=== PATIENT | female | born 1960 | race Caucasian/White ===

== ENCOUNTER 2017-03-26 18:58 | Observation (INO) | payer MEDICARE, MEDICAID ==
[~2017-03-26] VITALS: Ht 170.2 cm; Wt 122.5 kg
[2017-03-26 18:58] VITALS: BP 138/65
--- OUTSIDE RECORDS SUMMARY | 2017-03-26 19:12 | External Medical Summary Rpt | CCD ---
Author Author , MARCUS Organization MARCUS Address Unknown Phone [email or web address] Purpose Continuity of Care Document - 07-06-2016 through 2016 Problems Code Diagnosis DOS Provider Status Z12.31 ENCOUNTER 01-24-2017 FOR SCREENING MAMMOGRAM FOR MALIGNANT NEOPLASM OF BREAST S61.215A LACERATION 12-26-2016 WITHOUT FOREIGN BODY OF LEFT RING FINGER WITHOUT DAMAGE TO NAIL, INITIAL ENCOUNTER S61.412A LACERATION 12-26-2016 WITHOUT FOREIGN BODY OF LEFT HAND, INITIAL ENCOUNTER W25.XXXA CONTACT 12-26-2016 WITH [place], INITIAL ENCOUNTER Y92.9 UNSPECIFIED 12-26-2016 PLACE OR NOT APPLICABLE Y93.9 ACTIVITY, 12-26-2016 UNSPECIFIED Z87.891 PERSONAL 12-26-2016 HISTORY OF NICOTINE DEPENDENCE Z88.8 ALLERGY 12-26-2016 STATUS TO OTHER DRUGS, MEDICAMENTS AND BIOLOGICAL SUBSTANCES STATUS D69.2 OTHER 10-21-2016 NONTHROMBOC YTOPENIC PURPURA E11.9 TYPE 2 10-21-2016 DIABETES MELLITUS WITHOUT COMPLICATIO NS E55.9 VITAMIN D 10-21-2016 DEFICIENCY, UNSPECIFIED E78.5 HYPERLIPIDE 10-21-2016 SOMMER, UNSPECIFIED G62.9 POLYNEUROPA 10-21-2016 THY, UNSPECIFIED I10 ESSENTIAL 10-21-2016 (PRIMARY) HYPERTENSIO N R53.83 OTHER 10-21-2016 FATIGUE R53.81 OTHER 10-18-2016 MALAISE M54.16 RADICULOPAT 07-06-2016 HY, LUMBAR REGION M54.5 LOW BACK 07-06-2016 PAIN
--- OUTSIDE RECORDS SUMMARY | 2017-03-26 19:12 | External Medical Summary Rpt | CCD ---
Author Author , MARCUS Organization MARCUS Address Unknown Phone [email or web address] Purpose Continuity of Care Document - 07-06-2016 [...]
--- OUTSIDE RECORDS SUMMARY | 2017-03-26 19:13 | External Medical Summary Rpt | CCD ---
Author Author , MARCUS HOBBS Address Unknown Phone [email or web address] Immunization Name Date Rout CVX Reac Dose Comm Prov Is Faci e tion ent ider Refu lity Give sed n Td 05-01 9 999 Hist H191 No H191 ([place] 2-20 oric lt), al Info adso rmat rbed ion - Sour ce Unsp ecif ied
--- OUTSIDE RECORDS SUMMARY | 2017-03-26 19:13 | External Medical Summary Rpt ---
Author Author FABY Hernandez, FABY Hernandez Organization [employer] Address Unknown Phone Unavailable
--- OUTSIDE RECORDS SUMMARY | 2017-03-26 19:13 | External Medical Summary Rpt | CCD ---
Author Author , MARCUS HOBBS Address Unknown Phone Immunization Name Date Rout CVX Reac Dose Comm Prov Is Faci e tion ent ider Refu lity Give sed n Td 05-01 9 999 Hist H191 No H191 ([place] 2-20 oric lt), al Info adso rmat rbed ion - Sour ce Unsp ecif ied
--- OUTSIDE RECORDS SUMMARY | 2017-03-26 19:13 | External Medical Summary Rpt | CCD ---
Author Author , FABY HOBBS Address Unknown Phone [email or web address] Team Providers Care Medical Art Therapist Name Role Phone [facility] Unavailable Unavailable [facility] Unavailable Unavailable [facility], Unavailable Unavailable [facility], Unavailable Unavailable [facility] Unavailable Unavailable [facility], [facility] Unavailable Unavailable [facility], [facility]available Unavailable [facility] [place] [facility] Unavailable Unavailable Purpose Continuity of Care Document - 05-20-2010 through 2016 Problems Code Diagnosis DOS Provider Status F3489 OTHER 02-10-2017 [facility] MOOD DISORDERS E1142 TYPE 2 01-05-2017 [place] DIABETES MELLITUS W/DIAB POLYNEUROPA THY I10 ESSENTIAL 01-05-2017 [place] PRIMARY HYPERTENSIO N N393 STRESS 01-05-2017 [place] INCONTINENC E FEMALE MALE [id number] LACERATION 01-05-2017 [place] W/O FOREIGN BODY LT HAND INITIAL ENC [id number] FALL ON 01-05-2017 [facility] STEPS INITIAL ENCOUNTER H81442 OTH PLACE 01-05-2017 [place] UNS NON INST RES PLACE OF OCCUR EXTRNL Y998 OTHER 01-05-2017 [place] EXTERNAL CAUSE STATUS Z6841 BODY MASS 01-05-2017 [place] INDEX BMI 40.0-44.9 ADULT [id number] LAC W/O FB 12-23-2016 [facility] LT RING N EMERGENCY FINGER W/O PHYS DAMAGE NAIL INIT [id number] CONTACT 12-23-2016 [facility] WITH SHARP N EMERGENCY GLASS PHYS INITIAL ENCOUNTER M31324 PERSONAL 12-23-2016 [facility] DEPENDENCE Z888 ALLERGY 12-23-2016 [facility] STATUS OT [facility]OSP[facility] BIOLOG SUBSTANC STS D692 OTHER 10-18-2016 [place] NONTHROMBOC YTOPENIC PURPURA E6601 MORBID 10-18-2016 [place] SEVERE OBESITY DUE TO EXCESS CALORIES I2510 ASHD KALISPEL 10-18-2016 [place] 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 M797 FIBROMYALGI 10-18-2016 [facility] A R5383 OTHER 10-18-2016 [facility] FATIGUE E782 MIXED 10-06-2016 [place] HYPERLIPIDE SOMMER G4733 OBSTRUCTIVE 10-06-2016 [place] SLEEP APNEA ADULT PEDIATRIC M545 LOW BACK 10-06-2016 [place] [place] 22364 OBESITY, 07-29-2010 [facility] 25396 MIGRAINE 07-29-2010 [facility] W/O INTRACT W/O STAT MIGRNOSUS V8801 ACQUIRED 07-29-2010 [facility] ABSENCE OF [facility] BOTH CERVIX AND UTERUS V1589 OTH SPEC 07-15-2010 [facility] PRESENTING [facility] OTH V7611 SCREENING 07-15-2010 [facility] [place] [facility] PATIENT V7612 OTHER 07-15-2010 [facility] MAMMOGRAM ASSOCIAT 81406 OSTEOARTHRO 06-29-2010 [facility] UNSPEC [facility] WHETHER GEN/LOC LOWER LEG 85366 EFFUSION OF 06-15-2010 [facility] L[facility]G [facility] JOINT ASSOCIAT 7295 PAIN IN 06-15-2010 [facility] TISSUES OF [facility] Medications Na ND Rx Da Fi Fi Am Da Di Ph RX Ph St me C No te ll ll ou ys ag ar # ys at rm s nt no ma ic us Or Da si cy ia de te s n re d TR 50 03 03 2 90 30 SO 36 AR Ac AZ 11 -2 -2 .0 PE 88 LL ti OD 10 2- 2- 00 RS 88 ER ve ON 43 20 20 E 30 11 11 FA CA 50 3 AR RO LY L MG J DR JOSE HOLLAND BL ET NA 68 03 03 3 60 30 SO 36 Ac MA 46 -1 -1 .0 PE 79 LL ti OX 20 1- 1- 00 RS 25 AF ve EN 19 20 20 LO 00 11 11 FA R 50 5 AR OS 0 LY IA MG S DR Olga Lidia HOLLAND BL ET HY 00 01 03 2 12 24 SO [address] 18 -2 -0 0. PE 36 LL ti OX 50 8- 8- 00 RS 93 ER ve YZ 61 20 20 0 IN 50 11 11 FA CA E 5 AR RO PA LY L M J 50 DR SKYLER MG CA P 59 02 03 3 8. 15 SO 36 Ac 31 -1 -0 50 PE 53 LL ti 00 5- 4- 0 RS 87 AF ve 57 20 20 LO 92 11 11 FA R 0 AR OS LY IA S [facility] TR 50 01 03 2 60 30 SO 36 AR Ac AZ 11 -2 -0 .0 PE 41 LL ti OD 10 4- 2- 00 RS 42 ER ve ON 43 20 20 E 30 11 11 FA CA 50 3 AR RO LY L MG J [facility] BL ET 64 02 03 4 60 30 SO 36 Ac 72 -0 -0 .0 PE 42 LL ti 00 3- 2- 00 RS 09 AF ve 12 20 20 LO 51 11 11 FA R 1 AR OS LY IA S [facility] FU 63 02 03 4 30 30 SO 36 Ac RO 30 -0 -0 .0 PE 42 LL ti SE 40 3- 2- 00 RS 08 AF ve AR 62 20 20 LO DE 51 11 11 FA R 0 AR OS 40 LY IA S MG [facility] BL ET LI 00 02 03 4 30 30 SO 36 Ac SI 18 -0 -0 .0 PE 42 LL ti NO 50 3- 2- 00 RS 07 AF ve MA 10 20 20 LO IL 21 11 11 FA R 0 AR OS 20 LY IA S MG [facility] TA BL ET 59 02 02 3 8. 15 SO 36 Ac 31 -1 -1 50 PE 53 LL ti 00 5- 5- 0 RS 87 AF ve 57 20 20 LO 92 11 11 FA R 0 AR OS LY IA S [facility] NA 68 02 02 2 30 30 SO 36 Ac MA 46 -1 -1 .0 PE 53 LL ti OX 20 5- 5- 00 RS 86 AF ve EN 19 20 20 LO 00 11 11 FA R 50 5 AR OS 0 LY IA MG S [facility] BL ET 64 02 02 4 60 30 SO 36 Ac 72 -0 -0 .0 PE 42 LL ti 00 3- 3- 00 RS 09 AF ve 12 20 20 LO 51 11 11 FA R 1 AR OS LY IA S [facility] FU 63 02 02 4 30 30 SO 36 Ac RO 30 -0 -0 .0 PE 42 LL ti SE 40 3- 3- 00 RS 08 AF ve AR 62 20 20 LO DE 51 11 11 FA R 0 AR OS 40 LY IA S MG [facility] TA BL ET LI 00 02 02 4 30 30 SO 36 Ac SI 18 -0 -0 .0 PE 42 LL ti NO 50 3- 3- 00 RS 07 AF ve MA 10 20 20 LO IL 21 11 11 FA R 0 AR OS 20 LY IA S MG DR M UG TA BL ET TR 50 01 02 2 60 30 SO 36 AR Ac AZ 11 -2 -0 .0 PE 41 LL ti OD 10 4 3- RS 42 ER ve ON 43 20 20 E 30 11 11 FA CA 50 3 AR RO LY L MG J DR TA UG BL ET HY 00 01 01 2 12 24 SO [address] 18 -2 -2 0. PE 36 LL ti OX 50 8 8 RS 93 ER ve YZ 61 20 20 0 IN 50 11 11 FA CA E 5 AR RO PA LY L M J 50 DR UG MG CA P TR 65 01 01 0 12 30 SO 36 Ac AM 16 -0 -2 0. PE 36 LL ti AD 20 RS 92 AF ve OL 62 20 20 0 LO 71 11 11 FA R HC 1 AR OS L LY IA [address] M MG UG TA BL ET MA 68 12 01 0 30 10 SO 36 TA Ac OM 38 -0 -2 .0 PE 30 MA ti ET 20 9- 0- 00 RS 64 RE ve CISNEROS 04 20 20 N ZI 11 10 11 FA JA NE 0 AR NE LY T 25 DR MG UG TA BL ET Encounters Encounter Start End Date Code Location Performer Type Date [facility] 7 [facility] - 1 1 [facility] - 1 1 [facility] - 1 1 [facility]
--- OUTSIDE RECORDS SUMMARY | 2017-03-26 19:13 | External Medical Summary Rpt | CCD ---
Author Author , FABY HOBBS Address Unknown Phone [email or web address] Resume Care Team Providers Care Supervisor Plating [employer] Point Assembly Name Role Phone [facility] Unavailable Unavailable [facility], [facility] Unavailable Unavailable [facility], Unavailable Unavailable [facility], Unavailable Unavailable [facility] Unavailable Unavailable [facility], [facility] Unavailable Unavailable [facility], Unavailable Unavailable [facility], [facility] Unavailable Unavailable Purpose Continuity of Care Document - 05-20-2010 through 2016 Problems Code Diagnosis DOS Provider Status F3489 OTHER 02-10-2017 [facility]ST[facility] MOOD DISORDERS E1142 TYPE 2 01-05-2017 [facility] DIABETES MELLITUS W/DIAB POLYNEUROPA THY I10 ESSENTIAL 01-05-2017 [facility] PRIMARY HYPERTENSIO N N393 STRESS 01-05-2017 [facility] INCONTINENC E FEMALE MALE [id number] LACERATION 01-05-2017 [facility] W/O FOREIGN BODY LT HAND INITIAL ENC Q994OQS FALL ON 01-05-2017 [facility] STEPS INITIAL ENCOUNTER A99889 OTH PLACE 01-05-2017 [facility] UNS NON INST RES PLACE OF OCCUR EXTRNL Y998 OTHER 01-05-2017 [facility] EXTERNAL CAUSE STATUS Z6841 BODY MASS 01-05-2017 [facility] INDEX BMI 40.0-44.9 ADULT [id number] LAC W/O FB 12-23-2016 [facility] LT RING N EMERGENCY FINGER W/O PHYS DAMAGE NAIL INIT [id number] CONTACT 12-23-2016 [facility] WITH SHARP N EMERGENCY GLASS PHYS INITIAL ENCOUNTER X39479 PERSONAL 12-23-2016 [facility] DEPENDENCE Z888 ALLERGY 12-23-2016 [facility] STATUS OT COMM[facility] RX [facility]S [facility]OSP[facility] BIOLOG SUBSTANC STS D692 OTHER 10-18-2016 [facility] NONTHROMBOC YTOPENIC PURPURA E6601 MORBID 10-18-2016 [facility] SEVERE OBESITY DUE TO EXCESS CALORIES I2510 ASHD SLEETMUTE 10-18-2016 [facility] 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 M797 FIBROMYALGI 10-18-2016 [facility] A R5383 OTHER 10-18-2016 [facility] FATIGUE E782 MIXED 10-06-2016 [facility] HYPERLIPIDE SOMMER G4733 OBSTRUCTIVE 10-06-2016 [facility] SLEEP [facility]A ADULT PEDIATRIC M545 LOW BACK 10-06-2016 [place] [place] 17205 OBESITY, 07-29-2010 [facility] 43840 MIGRAINE 07-29-2010 [facility] W/O INTRACT W/O STAT MIGRNOSUS V8801 ACQUIRED 07-29-2010 [facility] ABSENCE OF [facility]OSPITAL BOTH CERVIX AND UTERUS V1589 OTH SPEC 07-15-2010 [facility] PRESENTING [facility] OTH V7611 SCREENING 07-15-2010 [facility] [place] MAMMOGRAM [facility] PATIENT V7612 OTHER 07-15-2010 [facility] MAMMOGRAM ASSOCIAT 34432 OSTEOARTHRO 06-29-2010 [facility] UNSPEC [facility] WHETHER GEN/LOC LOWER LEG 15604 EFFUSION OF 06-15-2010 [facility]IOLOG[facility] JOINT ASSOCIAT 7295 PAIN IN 06-15-2010 [facility] [place] [facility] TIS[facility]ES [facility] Medications Na ND Rx Da Fi Fi Am Da Di Ph RX Ph St me C No te ll ll ou ys ag ar # ys at rm s nt no ma ic us Or Da si cy ia de te s n re d TR 50 03 03 2 90 30 SO 36 VA Ac AZ 11 -2 -2 .0 PE 88 LL ti OD 10 2- 2- 00 RS 88 ER ve ON 43 20 20 E 30 11 11 FA CA 50 3 VA RO LY L MG J DR JOSE HOLLAND BL ET NA 68 03 03 3 60 30 SO 36 Ac [place] 46 -1 -1 .0 PE 79 LL ti OX 20 1- 1- 00 RS 25 AF ve EN 19 20 20 LO 00 11 11 FA R 50 5 VA OS 0 LY IA MG S DR Olga Lidia HOLLAND BL ET HY 00 01 03 2 12 24 SO [address] 18 -2 -0 0. PE 36 LL ti OX 50 8- 8- 00 RS 93 ER ve YZ 61 20 20 0 IN 50 11 11 FA CA E 5 VA RO PA LY L M J 50 DR SKYLER MG CA P 59 02 03 3 8. 15 SO 36 Ac 31 -1 -0 50 PE 53 LL ti 00 5- 4- 0 RS 87 AF ve 57 20 20 LO 92 11 11 FA R 0 VA OS LY IA S [facility] TR 50 01 03 2 60 30 SO 36 VA Ac AZ 11 -2 -0 .0 PE 41 LL ti OD 10 4- 2- 00 RS 42 ER ve ON 43 20 20 E 30 11 11 FA CA 50 3 VA RO LY L MG J [facility] BL ET 64 02 03 4 60 30 SO 36 Ac 72 -0 -0 .0 PE 42 LL ti 00 3- 2- 00 RS 09 AF ve 12 20 20 LO 51 11 11 FA R 1 VA OS LY IA S [facility] FU 63 02 03 4 30 30 SO 36 Ac RO 30 -0 -0 .0 PE 42 LL ti SE 40 3- 2- 00 RS 08 AF ve VA 62 20 20 LO DE 51 11 11 FA R 0 VA OS 40 LY IA S MG [facility] BL ET LI 00 02 03 4 30 30 SO 36 Ac SI 18 -0 -0 .0 PE 42 LL ti NO 50 3- 2- 00 RS 07 AF ve [place] 10 20 20 LO [place] 21 11 11 FA R 0 VA OS 20 LY IA S MG [facility] TA BL ET 59 02 02 3 8. 15 SO 36 Ac 31 -1 -1 50 PE 53 LL ti 00 5- 5- 0 RS 87 AF ve 57 20 20 LO 92 11 11 FA R 0 VA OS LY IA S [facility] NA 68 02 02 2 30 30 SO 36 Ac [place] 46 -1 -1 .0 PE 53 LL ti OX 20 5- 5- 00 RS 86 AF ve EN 19 20 20 LO 00 11 11 FA R 50 5 VA OS 0 LY IA MG S [facility] BL ET 64 02 02 4 60 30 SO 36 Ac 72 -0 -0 .0 PE 42 LL ti 00 3- 3- 00 RS 09 AF ve 12 20 20 LO 51 11 11 FA R 1 VA OS LY IA S [facility] FU 63 02 02 4 30 30 SO 36 Ac RO 30 -0 -0 .0 PE 42 LL ti SE 40 3- 3- 00 RS 08 AF ve VA 62 20 20 LO DE 51 11 11 FA R 0 VA OS 40 LY IA S MG [facility] TA BL ET LI 00 02 02 4 30 30 SO 36 Ac SI 18 -0 -0 .0 PE 42 LL ti NO 50 3- 3- 00 RS 07 AF ve [place] 10 20 20 LO [place] 21 11 11 FA R 0 VA OS 20 LY IA S MG DR M UG TA BL ET TR 50 01 02 2 60 30 SO 36 VA Ac AZ 11 -2 -0 .0 PE 41 LL ti OD 10 4 3- RS 42 ER ve ON 43 20 20 E 30 11 11 FA CA 50 3 VA RO LY L MG J DR TA UG BL ET HY 00 01 01 2 12 24 SO [address] 18 -2 -2 0. PE 36 LL ti OX 50 8 8 RS 93 ER ve YZ 61 20 20 0 IN 50 11 11 FA CA E 5 VA RO PA LY L M J 50 DR UG MG CA P TR 65 01 01 0 12 30 SO 36 Ac AM 16 -0 -2 0. PE 36 LL ti AD 20 RS 92 AF ve OL 62 20 20 0 LO 71 11 11 FA R HC 1 VA OS L LY IA [address] M MG UG TA BL ET [place] 68 12 01 0 30 10 SO 36 TA Ac OM 38 -0 -2 .0 PE 30 MA ti ET 20 9- 0- 00 RS 64 RE ve CISNEROS 04 20 20 N ZI 11 10 11 FA JA NE 0 VA NE LY T 25 DR MG UG TA BL ET Encounters Encounter Start End Date Code Location Performer Type Date [facility] 7 [facility] - 1 1 [facility] - 1 1 [facility] - 1 1 [facility]
[2017-03-26] MEDS ORDERED: ISOSORBIDE MONO60 M1 PO (19:16)
[2017-03-26] MEDS ORDERED: GABAPENTIN800 MG PO (19:16)
[2017-03-26] MEDS ORDERED: MELOXICAM15 MG PO (19:17)
[2017-03-26] MEDS ORDERED: PRAVACHOL40 MG PO (19:18)
[2017-03-26] MEDS ORDERED: ESTRADIOL TD (19:18)
[2017-03-26] MEDS ORDERED: OMEPRAZOLE40 MG PO (19:20)
[2017-03-26] MEDS ORDERED: METFORMIN ER500 MG PO (19:21)
[2017-03-26] MEDS ORDERED: NORTRIPTYLINE H75 MG PO (19:21)
[2017-03-26] MEDS ORDERED: NOVOLOG MIX 70/10 ML SC ×2 (19:22)
[2017-03-26] MEDS ORDERED: METOPROLOL SUCC50 M4 PO (19:23)
[2017-03-26] MEDS ORDERED: VENLAFAXINE HYD75 M1 PO (19:23)
[2017-03-26] MEDS ORDERED: BUSPIRONE HCL15 MG PO (19:24)
[2017-03-26] MEDS ORDERED: VENLAFAXINE HY150 MG PO (19:24)
--- NOTE | 2017-03-26 19:24 | Emergency Room Report ---
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 EMS STATED PT WAS ALERT AND ORIENTED UPON THEIR ARRIVAL, DIAPHORETIC. PT REPORTS HEADACHE, DENIES CHEST PAIN, ALERT AND ORIENTED X3 UPON ARRIVAL TO ED Onset of symptoms date/time:03/26/17 or onset unknown for: Treatment Prior to Arrival: #18 G L AC, EKG, FSBS 179 CLERK RATING Provided by: FOOD SERVICE SPECIALIST Sepsis Risk Assessment: Temp: 98.3 B/P: 138/65 MAP: 89 Pulse: 86 Resp: 18 Recent fever? N Clinical Suspician of Infection? N Mental Status: 1 - Regular (Normal Baseline) Sepsis Risk:Low Sepsis Risk Have you (or family members/close friends) recently traveled outside the [place]? N If Yes, where/when: Have you had exposure to infectious disease within the past month? N TB? Other? Specify: Source patient, RN notes reviewed Exam Limitations no limitations Comment Pt at [facility] this evening and had a syncopal episode that lasted about 30 seconds, preceded by Dizziness. She was alert and OX3 when EMS arrived and was brought to the ED in NAD. She remembers breaking out with a sweat just prior to passing out. No chest pain at all Cardiac Chest Pain Chest pain indicative of cardiac No ALLERGIES Coded Allergies: butorphanol (From STADOL) (UNRESPONSIVE 03/26/17) sumatriptan (RESPIRATORY DISTRESS 03/26/17) Home Medications Reported Medications Gabapentin (Gabapentin 800MG) 800 MG PO BID #90 Isosorbide Mononitrate (Isosorbide Mononitrate ER) 60 MG PO DAILY #30 Meloxicam (Meloxicam 15MG) 15 MG PO DAILY #90 Estradiol 0.05 MG TD BIWEEKLY #8 Pravastatin Sodium (Pravachol) 40 MG PO QHS #30 Omeprazole (Omeprazole 40MG) 40 MG PO BID #180 NORTRIPTYLINE HCL (Nortriptyline Hydrochloride) 75 MG PO QHS #30 METFORMIN HCL (Metformin HCl ER) 1,000 MG PO BID #360 Ins Asp-Prt 70/Asp 30(Nvlogmx) (Novolog Mix 70-30 Vial) 36 UNITS SC QAM #60 Metoprolol Succinate (Metoprolol Succinate XL) 25 MG PO DAILY #90 VENLAFAXINE HCL (Venlafaxine HCl ER) 75 MG PO NOON #90 VENLAFAXINE HCL (Venlafaxine HCl ER) 150 MG PO QAM #90 Buspirone Hcl 30 MG PO BID #360 Furosemide 40 MG PO DAILY #90 Topiramate 50 MG PO QHS #90 Ins Asp-Prt 70/Asp 30(Nvlogmx) (Novolog Mix 70-30 Vial) 25 UNITS SC QHS Allopurinol (Zyloprim 300MG Tab Generic) 300 MG PO QHS History Medical History General Angina: Yes [place]: No Hypertension? Yes Hyperlipidemia? Yes CHF? No DVT? No COPD? No Asthma? Yes Anemia? No GERD? Yes Gastric ulcers? No GI Bleed? No Hernia? Yes Thyroid Problems? No Hypothyroidism? No CVA? No Seizures? No Diabetes? Yes Insulin Dependent: Yes Insulin Pump: No Home FSBS? Yes Renal Insuffiency? No End Stage Renal Disease? No UTI? Yes Stones? Yes GB Disease: Yes Nephritic Syndrome? No Asplenia? No Hepatitis? Yes Sickle Cell Disease? No Arthritis? Yes Migraines? Yes Cataracts? No Glaucoma? No MRSA? No HIV? No TB? No Anxiety? Yes Depression? Yes Cancer? No More? 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 Hx LMP N/A Family History Family Hx Diabetes Yes CAD Yes Hypertension Yes Hyperlipidemia Yes Cancer Yes TB Yes Social History Smoking Hx Smoker: Never Smoker Tobacco: No Alcohol Alcohol: No Review of Systems All Other Systems Reviewed and Negative Constitutional see HPI Respiratory see HPI Psychiatric/Neurological see HPI Physical Exam Vital Signs Vital Signs Date Time Temp Pulse Resp B/P Pulse O2 O2 Flow FiO2 Ox Delivery Rate 03/26 2002 98.3 60 18 98/63 94 03/26 1858 98.3 86 18 138/65 96 General Appearance normal appearance, WD/WN, no apparent distress, obese Respiratory Status No: respiratory distress. Lung Sounds bilateral: normal breath sounds. Cardiovascular normal exam, regular rate/rhythm Neurologic alert, wine steward II-XII nml as tested, normal exam, no motor/sensory deficits, oriented x 3 Medical Decision Making LABS/Meds/Orders Pt receiving controlled substance in ED? No Results/Orders Laboratory Tests 03/26/171909: Sodium 142, Potassium 2.8 *L, Chloride 102, Carbon Dioxide 30, BUN 18, Creatinine 1.1 H, Estimated Creat Clear 113, Estimated GFR (MDRD) 52 L, Glucose 89, Calcium 9.1, Total Bilirubin 0.4, AST 98 H, ALT 107 H, Alkaline Phosphatase 98, Creatine Kinase 223 H, CK-MB (CK-2) Rel Index 0.6, CK and CKMB Interp 1.3, Troponin I 0.03, Total Protein 8.2, Albumin 4.0, Globulin 4.2 H, Albumin/Globulin Ratio 1.0 L, WBC 8.1, RBC 4.05 L, Hgb 12.2, Hct 37.5, MCV 92.5, RDW 14.5, Plt Count 231, MPV 7.8, Gran % 49.0, Gran # 4.0, Lymphocytes % 41.9, Monocytes % 5.9, Eosinophils % 2.9, Basophils % 0.4, Lymphocytes # 3.4, Monocytes # 0.5, Eosinophils # 0.2, Basophils # 0.0, PUBS MCHC 32.5, MCH 30.0 Current Medication Orders Sig/Brett Start time Last Medication Dose Route Stop Time Status Admin Sodium Chloride 10 ML PRN PRN 03/26 1915 AC IV 03/27 1901 Orders Procedure Date/time Status DIET-NOTHING BY MOUTH 03/[address] HEAD REQ 03/26 1912 Active ELECTROCARDIOGRAM REQUEST 03/26 1901 Active CHEST-PORTABLE 03/26 1901 Active IV SALINE LOCK 03/26 1901 Active 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 1901 Active CBC WITH AUTO DIFF 03/26 1901 Complete CARDIAC ENZYMES 03/26 1901 Complete CHEM 12 PROFILE 03/26 1901 Complete 12 LEAD EKG-ANDREW (INITIAL) 03/26 UNK Active Departure Departure Time of Disposition 2028 Disposition DC Home or Self Care(routine) Clinical Impression Primary Impression: Right hip pain Condition STABLE Referrals CHRISTIANO NARAYANAN (Family) Patient Instructions DI for Hip Pain Additional Instructions Use meds as directed and followup with PCP to get an MRI if symptoms persist Discharge Counseling Counseled pt/family regarding diagnosis, test results, home care, follow up needs Prescriptions Current Visit Scripts DICLOFENAC SODIUM (Diclofenac 50MG) 50 MG PO BID #60 TAB Methocarbamol (Robaxin) 500 MG PO BID #60 TAB ED Critical Care Critical Care No If Critical Care minutes are documented, the time involved in the performance of seperately reportable procedures was not counted toward critical care time documented. I directly delivered medical care to this critically ill and/or injured patient. Timely evaluation and treatment was necessary to address the significant organ system(s) dysfunction present in this patient. at 2031
--- NOTE | 2017-03-26 19:24 | Emergency Room Report ---
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 EMS STATED PT WAS ALERT AND ORIENTED UPON THEIR ARRIVAL, DIAPHORETIC. 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 N Clinical Suspician of Infection? N Mental Status: 1 - Regular (Normal Baseline) Sepsis Risk:Low Sepsis Risk Have you (or family members/close friends) recently traveled outside the [place]? N If Yes, where/when: Have you had exposure to infectious disease within the past month? N TB? Other? Specify: Source patient, RN notes reviewed Exam Limitations no limitations Comment Pt at [employer] this evening and had a syncopal episode that lasted about 30 seconds, preceded by Dizziness. She was alert and OX3 when EMS arrived and was brought to the ED in NAD. She remembers breaking out with a sweat just prior to passing out. No chest pain at all Cardiac Chest Pain Chest pain indicative of cardiac No ALLERGIES Coded Allergies: butorphanol (From STADOL) (UNRESPONSIVE 03/26/17) sumatriptan (RESPIRATORY DISTRESS 03/26/17) Home Medications Reported Medications Gabapentin (Gabapentin 800MG) 800 MG PO BID #90 Isosorbide Mononitrate (Isosorbide Mononitrate ER) 60 MG PO DAILY #30 Meloxicam (Meloxicam 15MG) 15 MG PO DAILY #90 Estradiol 0.05 MG TD BIWEEKLY #8 Pravastatin Sodium (Pravachol) 40 MG PO QHS #30 Omeprazole (Omeprazole 40MG) 40 MG PO BID #180 NORTRIPTYLINE HCL (Nortriptyline Hydrochloride) 75 MG PO QHS #30 METFORMIN HCL (Metformin HCl ER) 1,000 MG PO BID #360 Ins Asp-Prt 70/Asp 30(Nvlogmx) (Novolog Mix 70-30 Vial) 36 UNITS SC QAM #60 Metoprolol Succinate (Metoprolol Succinate XL) 25 MG PO DAILY #90 VENLAFAXINE HCL (Venlafaxine HCl ER) 75 MG PO NOON #90 VENLAFAXINE HCL (Venlafaxine HCl ER) 150 MG PO QAM #90 Buspirone Hcl 30 MG PO BID #360 Furosemide 40 MG PO DAILY #90 Topiramate 50 MG PO QHS #90 Ins Asp-Prt 70/Asp 30(Nvlogmx) (Novolog Mix 70-30 Vial) 25 UNITS SC QHS Allopurinol (Zyloprim 300MG Tab Generic) 300 MG PO QHS History Medical History General Angina: Yes [place]: No Hypertension? Yes Hyperlipidemia? Yes CHF? No DVT? No COPD? No Asthma? Yes Anemia? No GERD? Yes Gastric ulcers? No GI Bleed? No Hernia? Yes Thyroid Problems? No Hypothyroidism? No CVA? No Seizures? No Diabetes? Yes Insulin Dependent: Yes Insulin Pump: No Home FSBS? Yes Renal Insuffiency? No End Stage Renal Disease? No UTI? Yes Stones? Yes GB Disease: Yes Nephritic Syndrome? No Asplenia? No Hepatitis? Yes Sickle Cell Disease? No Arthritis? Yes Migraines? Yes Cataracts? No Glaucoma? No MRSA? No HIV? No TB? No Anxiety? Yes Depression? Yes Cancer? No More? 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 Hx LMP N/A Family History Family Hx Diabetes Yes CAD Yes Hypertension Yes Hyperlipidemia Yes Cancer Yes TB Yes Social History Smoking Hx Smoker: Never Smoker Tobacco: No Alcohol Alcohol: No Review of Systems All Other Systems Reviewed and Negative Constitutional see HPI Respiratory see HPI Psychiatric/Neurological see HPI Physical Exam Vital Signs Vital Signs Date Time Temp Pulse Resp B/P Pulse O2 O2 Flow FiO2 Ox Delivery Rate 03/26 2002 98.3 60 18 98/63 94 03/26 1858 98.3 86 18 138/65 96 General Appearance normal appearance, WD/WN, no apparent distress, obese Respiratory Status No: respiratory distress. Lung Sounds bilateral: normal breath sounds. Cardiovascular normal exam, regular rate/rhythm Neurologic alert, collections professional II-XII nml as tested, normal exam, no motor/sensory deficits, oriented x 3 Medical Decision Making LABS/Meds/Orders Pt receiving controlled substance in ED? No Results/Orders Laboratory Tests 03/26/171909: Sodium 142, Potassium 2.8 *L, Chloride 102, Carbon Dioxide 30, BUN 18, Creatinine 1.1 H, Estimated Creat Clear 113, Estimated GFR (MDRD) 52 L, Glucose 89, Calcium 9.1, Total Bilirubin 0.4, AST 98 H, ALT 107 H, Alkaline Phosphatase 98, Creatine Kinase 223 H, CK-MB (CK-2) Rel Index 0.6, CK and CKMB Interp 1.3, Troponin I 0.03, Total Protein 8.2, Albumin 4.0, Globulin 4.2 H, Albumin/Globulin Ratio 1.0 L, WBC 8.1, RBC 4.05 L, Hgb 12.2, Hct 37.5, MCV 92.5, RDW 14.5, Plt Count 231, MPV 7.8, Gran % 49.0, Gran # 4.0, Lymphocytes % 41.9, Monocytes % 5.9, Eosinophils % 2.9, Basophils % 0.4, Lymphocytes # 3.4, Monocytes # 0.5, Eosinophils # 0.2, Basophils # 0.0, PUBS MCHC 32.5, MCH 30.0 Current Medication Orders Sig/Brett Start time Last Medication Dose Route Stop Time Status Admin Sodium Chloride 10 ML PRN PRN 03/26 1915 AC IV 03/27 1901 Orders Procedure Date/time Status DIET-NOTHING BY MOUTH 03/[address] HEAD REQ 03/26 1912 Active ELECTROCARDIOGRAM REQUEST 03/26 1901 Active CHEST-PORTABLE 03/26 1901 Active IV SALINE LOCK 03/26 1901 Active 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 Active CBC WITH AUTO DIFF 03/26 1901 Complete CARDIAC ENZYMES 03/26 1901 Complete CHEM 12 PROFILE 03/26 1901 Complete 12 LEAD EKG-ANDREW (INITIAL) 03/26 UNK Active Departure Departure Time of Disposition 2028 Disposition DC Home or Self Care(routine) Clinical Impression Primary Impression: Right hip pain Condition STABLE Referrals CHRISTIANO NARAYANAN (Family) Patient Instructions DI for Hip Pain Additional Instructions Use meds as directed and followup with PCP to get an MRI if symptoms persist Discharge Counseling Counseled pt/family regarding diagnosis, test results, home care, follow up needs Prescriptions Current Visit Scripts DICLOFENAC SODIUM (Diclofenac 50MG) 50 MG PO BID #60 TAB Methocarbamol (Robaxin) 500 MG PO BID #60 TAB ED Critical Care Critical Care No If Critical Care minutes are documented, the time involved in the performance of seperately reportable procedures was not counted toward critical care time documented. I directly delivered medical care to this critically ill and/or injured patient. Timely evaluation and treatment was necessary to address the significant organ system(s) dysfunction present in this patient. at 2031
[2017-03-26 19:25] LABS: HEMOGLOBIN 12.2 g/dL (12.2-16.2); LYMPH # 3.4 K/mm3 (0.7-4.5); LYMPH % 41.9 % (10-50.0)
[2017-03-26] MEDS ORDERED: FUROSEMIDE 40MG40 M1 PO (19:25)
[2017-03-26] MEDS ORDERED: TOPIRAMATE50 MG PO (19:25)
[2017-03-26] MEDS ORDERED: ZYLOPRIM 300MG300 MG PO (19:26)
--- NOTE | 2017-03-26 20:19 | RADIOLOGY REPORT PS360 ---
CT HEAD WITHOUT CONTRAST CT BONE WINDOWS included ORDERING PHYSICIAN : Rafaela Booker MD PATIENT AGE: 56 years GENDER: Female PROCEDURE: Routine axial images headwithout contrast. Brain & bone windows Headache HISTORY: SYNCOPAL EPISODE COMPARISON: Previous CT head 08/07/2008 FINDINGS: No acute intracranial findings. No hemorrhage.. No significant new findings compared to 2009. No mass effect or mass lesion. No subdural nor extra-axial collection. Ventricles & basal cisterns appear satisfactory. Vital & white matter patterns satisfactory. The posterior fossa appear satisfactory and unremarkable. Skull intact. Likely previous procedure rightglobe Mild mucosal thickening at posterior sphenoid sinuses bilaterally. Ethmoid air cells clear. Frontal and visualized portions of maxillary sinuses clear. It. Mastoid air cells, middle ear & IACs are unremarkable. IMPRESSION: No acute intracranial findings.. Stable CT brain versus 2009 mild mucosal thickening sphenoid sinus incidentally noted
[2017-03-26] MEDS ORDERED: ROBAXIN500 M1 PO (20:31)
[2017-03-26] MEDS ORDERED: DICLOFENAC 50MG50 MG PO (20:31)
--- OUTSIDE RECORDS SUMMARY | 2017-03-26 21:38 | External Medical Summary Rpt | CCD ---
Author Author [employer] Address Unknown Phone Unavailable Purpose Continuity of Care Document - through 2016
--- OUTSIDE RECORDS SUMMARY | 2017-03-26 21:38 | External Medical Summary Rpt ---
Author Author ALBERTOJAMAR Hernandez, [employer] Organization [employer] Address Unknown Phone Unavailable Results Glucose [Mass/volume] in Capillary blood by Glucometer Observa Value Referen Units Interpr Notes Date tion ce etation Range Glucose 70 - 110 mg/dl No Mar 26 [Mass/vol informati informati 2017 9:10 ume] in on in on in PM Capillary source source blood by data data Glucomete r Cardiac enzymes Observa Value Referen Units Interpr Notes Date tion ce etation Range Creatine 0 - 4.0 U/L Normal No Mar 26 kinase.MB informati 2016 7:10 /Creatine on in PM source kinase.to data kristina [Ratio] in Serum or Plasma Creatine 0.0 - 3.6 ng/mL Normal No Mar 26 kinase.MB informati 2017 7:10 on in PM [Mass/vol source ume] in data Serum or Plasma Creatine 26 - 192 U/L High No Mar 26 kinase informati 2017 7:10 [Enzymati on in PM c source activity/ data volume] in Serum or Plasma Troponin 0.00 - ng/mL Normal No Mar 26 I.cardiac 0.06 informati 2017 7:10 on in PM [Mass/vol source ume] in data Serum or Plasma Comprehensive metabolic 2000 panel in Serum or Plasma Observa Value Referen Units Interpr Notes Date ti ce etation Range Albumin/G 1.1 - 1.8 No Low No Mar 26 lobulin informati informati 2017 7:10 [Mass on in on in PM ratio] in source source Serum or data data Plasma Albumin 3.4 - 5.0 gm/dL Normal No Mar 26 [Mass/vol informati 2016 7:10 ume] in on in PM Serum or source Plasma data Alkaline 46 - 116 U/L Normal No Mar 26 phosphata informati 2017 7:10 se on in PM [Enzymati source c data activity/ volume] in Serum or Plasma Bilirubin 0.2 - 1.0 mg/dL Normal No Mar 26 .total informati 2017 7:10 [Mass/vol on in PM ume] in source Serum or data Plasma Urea 7 - 18 mg/dL Normal No Mar 26 nitrogen informati 2016 7:10 [Mass/vol on in PM ume] in source Serum or data Plasma Calcium 8.5 - mg/dL Normal No Mar 26 [Mass/vol 10.1 informati 2016 7:10 ume] in on in PM Serum or source Plasma data Chloride 98 - 107 mmoL/L Normal Mar 26 [Moles/vo informati 2016 7:10 lume] in on in PM Serum or source Plasma data Carbon 21.0 - mmoL/L Normal No Mar 26 dioxide, 32.0 informati 2016 7:10 total on in PM [Moles/vo source lume] in data Serum or Plasma Creatinin 0.55 - mg/dL High No Mar 26 e 1.02 informati 2016 7:10 [Mass/vol on in PM ume] in source Serum or data Plasma Creatinin 50 - 200 ML/MIN Normal No Mar 26 e renal informati 2016 7:10 clearance on in PM source predicted data by Cockcroft -Gault formula Estimated 59- ML/MIN Low REFERENCE Mar 26 RANGE: 2017 7:10 glomerula >60 PM r ML/MIN/1. filtratio 73 SQUARE n rate METERSIf (GF this patient is -A merican, then multiply theresult by 1.210. Globulin 1.3 - 3.2 gm/dL High No Mar 26 [Mass/vol informati 2016 7:10 ume] in on in PM Serum source data Glucose 74 - 106 mg/dL Normal Mar 26 [Mass/vol informati 2016 7:10 ume] in on in PM Serum or source Plasma data Potassium 3.5 - 5.1 mmoL/L Low alert Mar 26 2016 7:10 [Moles/vo CRITICAL PM lume] in RESULTS Serum or Plasma RESU LTS CALLED TO: Silverio HUITRON RN 03/26/17 1950 Karo Irizarry Sodium 136 - 145 mmoL/L Normal Mar 26 [Moles/vo informati 2016 7:10 lume] in on in PM Serum or source Plasma data Aspartate 15 - 37 U/L High Mar 26 informati 2016 7:10 aminotran on in PM sferase source [Enzymati data c activity/ volume] in Serum or Plasma Alanine 12 - 78 U/L High No Mar 26 aminotran informati 2016 7:10 sferase on in PM [Enzymati source c data activity/ volume] in Serum or Plasma Protein 6.4 - 8.2 gm/dL Normal No Mar 26 [Mass/vol informati 2016 7:10 ume] in on in PM Serum or source Plasma data CBC W Auto Differential panel in Blood Observa Value Referen Units Interpr Notes Date tion ce etation Range Basophils 0 - 0.2 K/MM3 Normal No Mar 26 informati 2016 7:10 [#/volume on in PM ] in source Blood by data Automated count Basophils 0.1 - 2.0 % Normal No Mar 26 / informati 2016 7:10 leukocyte on in PM s in source Blood by data Automated count Eosinophi 0.0 - 0.4 K/mm3 Normal No Mar 26 ls informati 2016 7:10 [#/volume on in PM ] in source Blood by data Automated count Eosinophi 0.1 - % Normal No Mar 26 ls/100 12.0 informati 2016 7:10 leukocyte on in PM s in source Blood by data Automated count Granulocy 1.8 - 7.8 K/mm3 Normal No Mar 26 joel informati 2016 7:10 [#/volume on in PM ] in source Blood by data Automated count Granulocy 37.0 - % Normal No Mar 26 joel/100 80.0 informati 2016 7:10 leukocyte on in PM s in source Blood by data Automated count Hematocri 37.0 - % Normal Mar 26 t [Volume 47.0 informati 2016 7:10 on in PM Fraction] source of Blood data Hemoglobi 12.2 - g/dL Normal Mar 26 n 16.2 informati 2016 7:10 [Mass/vol on in PM ume] in source Blood data Lymphocyt 0.7 - 4.5 K/mm3 Normal No Mar 26 es informati 2016 7:10 [#/volume on in PM ] in source Unspecifi data ed specimen by Automated count Lymphocyt 10 - 50.0 % Normal No Mar 26 es informati 2016 7:10 [#/volume on in PM ] in source Unspecifi data ed specimen by Automated count Erythrocy 27 - 31.2 pg Normal No Mar 26 te mean informati 2016 7:10 corpuscul on in PM ar source hemoglobi data n [Entitic mass] Erythrocy 31.8 - g/dl Normal No Mar 26 te mean 35.4 informati 2016 7:10 corpuscul on in PM ar source hemoglobi data n concentra tion [Mass/vol ume] by Automated count Erythrocy 82.2 - fl Normal No Mar 26 te mean 97.8 informati 2016 7:10 corpuscul on in PM ar volume source [Entitic data volume] by Automated count Monocytes 0.1 - 1.0 K/mm3 Normal No Mar 26 informati 2016 7:10 [#/volume on in PM ] in source Blood by data Automated count Monocytes 1.7 - 9.3 % Normal No Mar 26 /100 informati 2017 7:10 leukocyte on in PM s in source Blood by data Automated count Platelet 7.4 - fl Normal No Mar 26 mean 10.4 informati 2017 7:10 volume on in PM [Entitic source volume] data in Blood by Automated count Platelets 142 - 424 K/mm3 No Mar 26 informati informati 2017 7:10 [#/volume on in on in PM ] in source source Blood data data Erythrocy 4.2 - 5.4 M/mm3 Low No Mar 26 joel informati 2016 7:10 [#/volume on in PM ] in source Amniotic data fluid Erythrocy 11.5 - % Normal No Mar 26 te 17.5 informati 2016 7:10 distribut on in PM ion width source [Entitic data volume] by Automated count Leukocyte 4.8 - K/MM3 Normal No Mar 26 s 10.8 informati 2016 7:10 [#/volume on in PM ] in source Blood data
[2017-03-26 21:52] LABS: FREE THYROXIN INDEX 8.1 ug/dl (5.93-13.13)
--- NOTE | 2017-03-26 23:10 | RADIOLOGY REPORT PS360 ---
CHEST-PORTABLE Ordering Physician: Jose Belcher MD Patient Age: 56 years: Female HISTORY: CHEST PAIN chest pain. Syncope. Smoker. TECHNIQUE: AP portable upright chest COMPARISON :Previous chest film 03/26/2007 portable FINDINGS No significant new findings. No interval change. No focal pneumonia. No pneumothorax. Heart rebecca and mediastinal structures appear stable and satisfactory. chest painting leader connector points are seen over left and right chest IMPRESSION: Lungs clear. Stable nothing definitely acute
--- NOTE | 2017-03-26 23:10 | RADIOLOGY REPORT PS360 ---
CHEST-PORTABLE Ordering Physician: Jose Belcher MD Patient Age: 56 years: Female HISTORY: CHEST PAIN chest pain. Syncope. Smoker. TECHNIQUE: AP portable upright chest COMPARISON :Previous chest film 03/26/2007 portable FINDINGS No significant new findings. No interval change. No focal pneumonia. No pneumothorax. Heart rebecca and mediastinal structures appear stable and satisfactory. patient monitor connector points are seen over left and right chest IMPRESSION: Lungs clear. Stable nothing definitely acute
[2017-03-26 23:25] VITALS: BP 105/65
[2017-03-26 23:34] VITALS: BP 105/65
[2017-03-27] VITALS (18 sets, daily range): BP systolic 106–145; BP diastolic 50–92
[2017-03-27] MEDS ORDERED: VITAMIN D31000 IU PO (01:13)
[2017-03-27] MEDS ORDERED: ASPIRIN 81MG TA81 MG PO (01:14)
[2017-03-27 04:25] LABS: HEMOGLOBIN 11.7 g/dL (12.2-16.2); LYMPH # 3.6 K/mm3 (0.7-4.5); LYMPH % 51.5 % (10-50.0)
[2017-03-27 04:43] LABS: NEUTROPHILS 32 % (42-76)
--- NOTE | 2017-03-27 08:54 | PHARMACY CLINIC NOTE ---
Patient Demographics Patient Demographics Admission date: 03/26/17 Date: 03/27/17 Time: 0853 Allergies Coded Allergies: butorphanol (From STADOL) (UNRESPONSIVE 03/26/17) sumatriptan (RESPIRATORY DISTRESS 03/26/17) HEIGHT- FT: 5 IN: 7.00 K.528 VTE General Information Labs: Laboratory Tests 03/27 03/26 0405 1910 Hematology Hgb (12.2 - 16.2 g/dL) 11.7 L 12.2 Hct (37.0 - 47.0 %) 36.2 L 37.5 Plt Count (142 - 424 K/mm3) 198 231 Disclaimer The following section includes nursing documentation that has been pulled in for pharmacy review. Patient's VTE score: 2 Patient's VTE Risk: VERY LOW RISK Clinical trial participant? No VTE prophylaxis NQF [id number] VTE prophylaxis ordered? Yes Type of prophylaxis/treatment: DOROTHY at 0853
--- NOTE | 2017-03-27 08:55 | CONSULT NOTE ---
See Addendum Standard Demographics Patient Demo Date of Consultation: 03/27/17 Referring Provider: Erickson Julio MD Reason for Consultation: Syncope, CAD, HTN PRIMARY DIAGNOSIS: SYNCOPE Problem list Problem list: 1. Diabetes mellitus, treated since about 2009 2. Hypertension 3. Hyperlipidemia 4. CAD by cath 2011, small vessel per patient with recommendation for medical therapy. History of present illness: History of present illness: 56-year-old white female with diabetes, known coronary artery disease, hypertension and hyperlipidemia presented to the emergency department by EMS after syncopal episode at [facility]. Patient denies any chest discomfort earlier in the day. After returning to [facility] in the evening and sitting down to enjoy a butterscotch she felt some discomfort in the upper chest and reportedly passed out. EMS was activated and patient was transported to the emergency department. She reportedly did receive cardiopulmonary resuscitation. The patient awoke when the ambulance was arriving. To the emergency department H and P for further details. Patient relates some recent exertional chest discomfort which improved with an increase in her Toprol therapy. Patient reports last cardiac catheterization in 2011 revealing small vessel disease for which no intervention recommended other than medical therapy. In the emergency department, patient was noted to have orthostatic blood pressure changes hypokalemia. IV fluids and potassium supplementation were started. Initial troponin was normal but the second and third were noted to be elevated. Patient was admitted for further evaluation. She denies any further chest pain except that associated with palpation of the chest wall or deep breathing secondary to the chest compressions. Electrocardiogram is sinus rhythm with lateral nonspecific ST-T changes. Cardiology consulted for evaluation and recommendations. Past Medical History: General: Hypertension Yes CVA No Seizures No TB No COPD No Asthma Yes Diabetes Yes Insulin Dependent Yes Insulin Pump No Angina Yes CT No Hyperlipidemia Yes Cancer No Ulcers No GB Disease Yes Other HEP C Additional hx HEPATITIS C Past Surgical HX: Previous Surgery?Y HYSTERECTOMY BLADDER TACKING RECTUM REPAIR [place] Hernia OVARIAN CYST REMOVED BREAST LUMP REMOVED D & C LAPAROSCOPIC X 3 Allergies Coded Allergies: butorphanol (From STADOL) (UNRESPONSIVE 03/26/17) sumatriptan (RESPIRATORY DISTRESS 03/26/17) Home medications: Reported Medications Gabapentin (Gabapentin 800MG) 800 MG PO BID #90 Isosorbide Mononitrate (Isosorbide Mononitrate ER) 60 MG PO DAILY #30 Meloxicam (Meloxicam 15MG) 15 MG PO DAILY #90 Estradiol 0.05 MG TD BIWEEKLY #8 Pravastatin Sodium (Pravachol) 40 MG PO QHS #30 Omeprazole (Omeprazole 40MG) 40 MG PO BID #180 METFORMIN HCL (Metformin HCl ER) 1,000 MG PO BID #360 Ins Asp-Prt 70/Asp 30(Nvlogmx) (Novolog Mix 70-30 Vial) 36 UNITS SC QAM #60 VENLAFAXINE HCL (Venlafaxine HCl ER) 75 MG PO NOON #90 VENLAFAXINE HCL (Venlafaxine HCl ER) 150 MG PO QAM #90 Buspirone Hcl 30 MG PO BID #360 Furosemide 40 MG PO DAILY #90 Topiramate 50 MG PO QHS #90 Metoprolol Succinate (Metoprolol Succinate XL) 25 MG PO DAILY #90 TAB NORTRIPTYLINE HCL (Nortriptyline Hydrochloride) 50 MG PO QHS #30 CAPSULE Ins Asp-Prt 70/Asp 30(Nvlogmx) (Novolog Mix 70-30 Vial) 27 UNITS SC QHS CHOLECALCIFEROL (VITAMIN D3) (Vitamin D) 2,000 IUNITS PO DAILY ASPIRIN (Aspirin) 81 MG PO DAILY Allopurinol (Zyloprim 300MG Tab Generic) 300 MG PO QHS Current Medications: Current Medications Allopurinol 300 MG QHS PO Pravastatin Sodium 40 MG QHS PO (CKD) Isosorbide Mononitrate 60 MG DAILY PO Metoprolol Succinate 25 MG DAILY PO Venlafaxine HCl 75 MG DAILY PO Fentanyl Citrate 25 MCG Q3MINP PRN IV (UNV) Fentanyl Citrate 50 MCG Q3MINP PRN IV (UNV) Flumazenil 0.2 MG PRN PRN IV (UNV) Heparin Sodium (Beef Lung) 5,000 UNITS PRN PRN IV (UNV) Heparin Sodium/Sodium Chloride 3,000 UNITS PRN PRN IV (UNV) Lidocaine HCl 20 ML ONCE ONE IJ (UNV) Midazolam HCl 1 MG Q3MINP PRN IV (UNV) Midazolam HCl 1 MG Q3MINP PRN IV (UNV) Naloxone HCl 0.4 MG L2SAFLLA PRN IV (UNV) Nitroglycerin 800 MCG PRN PRN IV (UNV) Verapamil HCl 5 MG PRN PRN IV (UNV) Sodium Chloride 10 ML PRN PRN IV Diagnostic Test (Pha) 1 EACH W/MEALS&HS FS Insulin Human [rDNA origin] SEE ADMIN CRITERIA FOR LOW INTENSITY SS W/MEALS&HS SC Sodium Chloride 1,000 ML .[id number] IV Clopidogrel Bisulfate 0 .STK-MED ONE PO (DC) Enoxaparin Sodium 0 .STK-MED ONE SC (DC) Clopidogrel Bisulfate 300 MG ONCE ONE PO (DC) Enoxaparin Sodium 120 MG ONCE ONE SC (DC) Potassium Chloride 0 .STK-MED ONE PO (DC) Sodium Chloride 1,000 ML .STK-MED ONE IV (DC) Potassium Chloride 60 MEQ ONCE ONE PO (DC) Sodium Chloride 1,000 ML .Q1H1M IV (DC) Sodium Chloride 10 ML PRN PRN IV Sodium Chloride 10 ML PRN PRN IV Immunization HX DT/Tetanus 5-10 Years Flu 2017 Pneumonia RECEIVED IN PAST TB Test in last year No Family history Family HX Family Hx Insignificant No Diabetes Yes CAD Yes Hypertension Yes Hyperlipidemia Yes Cancer Yes TB Yes Social Hx: Smoking HX Tobacco No Type N/A Alcohol Alcohol: No Hx of Drug Use Drug Use? No Review of systems: Constitutional No: no symptoms reported. Respiratory SOB with excertion. Cardiovascular chest pain Gastrointestinal/Abdominal No no symptoms reported Genitourinary No: no symptoms reported. Musculoskeletal No: no symptoms reported. Neurological Yes: see HPI. Exam: Admission Vital Signs: 1ST Vital Signs Result Date Time Pulse Ox 96 03/268 B/P 138/65 03/26 1858 Temp 98.3 03/26 1858 Pulse 86 03/26 185 Resp 18 03/26 1858 O2 Delivery ROOM AIR 03/26 2325 Last Vital Signs: Vital Signs Result Date Time Pulse Ox 98 03/27 816 B/P 109/67 03/27 816 Temp 98.0 03/27 816 Pulse 66 03/27 08 Resp 20 03/27 08 O2 Delivery ROOM AIR 03/27 0755 Exam General appearance: alert, awake, no acute distress Neck: no carotid bruit, no JVD Cardiovascular: regular rate & rhythm Respiratory: diminished breath sounds ABD: soft, no tenderness Extremities: moves all, no peripheral edema Neuro: alert, intact, oriented Laboratory data: Laboratory Tests 03/27/17 0405: Sodium 144, Potassium 3.3 L, Chloride 107, Carbon Dioxide 29, BUN 15, Creatinine 0.9, Estimated Creat Clear 138, Estimated GFR (MDRD) 65, Glucose 131 H, Calcium 8.2 L, Total Bilirubin 0.3, AST 77 H, ALT 90 H, Alkaline Phosphatase 85, Creatine Kinase 227 H, CK-MB (CK-2) Rel Index 0.8, CK and CKMB Interp 1.9, Troponin I 0.20 H, Total Protein 7.1, Albumin 3.4, Globulin 3.7 H, Albumin/Globulin Ratio 0.9 L, WBC 6.9, RBC 3.87 L, Hgb 11.7 L, Hct 36.2 L, MCV 93.6, RDW 14.5, Plt Count 198, MPV 7.2 L, Gran % 37.0, Gran # 2.6, Total Counted 100, Lymphocytes % 51.5 H, Monocytes % 7.4, Eosinophils % 3.5, Basophils % 0.5, Neutrophils 32 L, Band Neutrophils 1, Lymphocytes (Manual) 62 H, Lymphocytes # 3.6, Monocytes (Manual) 2, Monocytes # 0.5, Eosinophils # 0.3, Eosinophils # (Manual) 3, Basophils # 0.0, RBC/WBC/PLT Morphology NORMAL, Platelet Estimate NORMAL, PUBS MCHC 32.2, MCH 30.2 03/26/172150: Creatine Kinase 196 H, CK-MB (CK-2) Rel Index 0.6, CK and CKMB Interp 1.1, Troponin I 0.11 H 03/26/172109: POC Glucose 73 03/26/171909: TSH 3.38, Free T4 Index 8.1, Thyroxine (T4) 10.8, T3 Uptake 30 L 03/26/171909: Sodium 142, Potassium 2.8 *L, Chloride 102, Carbon Dioxide 30, BUN 18, Creatinine 1.1 H, Estimated Creat Clear 113, Estimated GFR (MDRD) 52 L, Glucose 89, Calcium 9.1, Total Bilirubin 0.4, AST 98 H, ALT 107 H, Alkaline Phosphatase 98, Creatine Kinase 223 H, CK-MB (CK-2) Rel Index 0.6, CK and CKMB Interp 1.3, Troponin I 0.03, Total Protein 8.2, Albumin 4.0, Globulin 4.2 H, Albumin/Globulin Ratio 1.0 L, D-Dimer 386, WBC 8.1, RBC 4.05 L, Hgb 12.2, Hct 37.5, MCV 92.5, RDW 14.5, Plt Count 231, MPV 7.8, Gran % 49.0, Gran # 4.0, Lymphocytes % 41.9, Monocytes % 5.9, Eosinophils % 2.9, Basophils % 0.4, Lymphocytes # 3.4, Monocytes # 0.5, Eosinophils # 0.2, Basophils # 0.0, PUBS MCHC 32.5, MCH 30.0 Plan Assessment: 1. Non-STEMI, ASA and plavix started. 2. Syncope, etiology unknown but concerned for ischemic origin. 3. Known coronary disease by cath 2011. 4. Diabetes mellitus 5. Orthostatic hypertension 6. Hypokalemia JESSA N-STEMI SCORE JESSA N-STEMI SCORE Response Value Age of patient Less than 65 yrs 0 Number of risk factors for CAD Presence of 3 or more 1 Prior coronary artery stenosis (seen in angiography) 50% or more 1 ST-Segment deviation on ECG (>1 min) Absent 0 Prior aspirin intake ASA intake in last 7 days 1 Severe anginal chest pain 2 or more episodes/24hr 1 Elevated cardiac markers(CK-MB or troponin) Present 1 Total 5 Plan: Discussed with Dr. Dupree. We'll proceed with LEFT heart catheterization today. Patient agrees to proceed. at 0912
--- NOTE | 2017-03-27 09:08 | HISTORY AND PHYSICAL REPORT ---
See Addendum History and Physical ([facility]CA) Date of admission: 03/26/17 Chief complaint: chest pain with syncope History: History of Present Illness: Ms Cardoza is a 56 year old female with a history of CAD, asthma, gout, diabetes , and who when at [facility] will sitting began having some LACP. She then passed out and remembers the ambulance people working with her while lying on the bench in the [employer]. She states someone told her that CPR was performed on her. She is sore on the left chest from this. She does not remember being SOB or having palpitations. She states she has been having chest pain for about the past 3 months. She saw her PCP, Dr. Schneider, and he increased her Imdur. She was suppose to see her mdm developer, Dr. Braxton, but has yet to make an appt. She thinks her last cardiac cath was in 2012 at which time her CAD was discovered. She had a stress test about 1 year ago which she describes as not being good. This AM she has left anterior and lateral chest soreness. Pain is greater with movement; She denies any breathing difficulty. Past Medical History: Medical History: CAD? Yes Angina: Yes CA: No Hypertension? Yes Hyperlipidemia? Yes CHF? No DVT? No COPD? No Asthma? Yes Anemia? No GERD? Yes Gastric ulcers? No GI Bleed? No Hernia? Yes Thyroid Problems? No Hypothyroidism? No CVA? No Seizures? No Diabetes? Yes Insulin Dependent: Yes Insulin Pump: No Home FSBS? Yes Renal Insuffiency? No UTI? Yes Stones? Yes GB Disease: Yes Nephritic Syndrome? No Asplenia? No Hepatitis? Yes Sickle Cell Disease? No Arthritis? Yes Migraines? Yes Cataracts? No Glaucoma? No HIV? No TB? No Anxiety? Yes Depression? Yes Cancer? No More? Yes Additional hx: HEPATITIS C Surgical history: Previous Surgery?Y HYSTERECTOMY BLADDER TACKING RECTUM REPAIR Gallbladd Hernia OVARIAN CYST REMOVED BREAST LUMP REMOVED D & C LAPAROSCOPIC X 3 Medications: Reported Medications Gabapentin (Gabapentin 800MG) 800 MG PO BID #90 Isosorbide Mononitrate (Isosorbide Mononitrate ER) 60 MG PO DAILY #30 Meloxicam (Meloxicam 15MG) 15 MG PO DAILY #90 Estradiol 0.05 MG TD BIWEEKLY #8 Pravastatin Sodium (Pravachol) 40 MG PO QHS #30 Omeprazole (Omeprazole 40MG) 40 MG PO BID #180 METFORMIN HCL (Metformin HCl ER) 1,000 MG PO BID #360 Ins Asp-Prt 70/Asp 30(Nvlogmx) (Novolog Mix 70-30 Vial) 36 UNITS SC QAM #60 VENLAFAXINE HCL (Venlafaxine HCl ER) 75 MG PO NOON #90 VENLAFAXINE HCL (Venlafaxine HCl ER) 150 MG PO QAM #90 Buspirone Hcl 30 MG PO BID #360 Furosemide 40 MG PO DAILY #90 Topiramate 50 MG PO QHS #90 Metoprolol Succinate (Metoprolol Succinate XL) 25 MG PO DAILY #90 TAB NORTRIPTYLINE HCL (Nortriptyline Hydrochloride) 50 MG PO QHS #30 CAPSULE Ins Asp-Prt 70/Asp 30(Nvlogmx) (Novolog Mix 70-30 Vial) 27 UNITS SC QHS CHOLECALCIFEROL (VITAMIN D3) (Vitamin D) 2,000 IUNITS PO DAILY ASPIRIN (Aspirin) 81 MG PO DAILY Allopurinol (Zyloprim 300MG Tab Generic) 300 MG PO QHS Allergies: Coded Allergies: butorphanol (From STADOL) (UNRESPONSIVE 03/26/17) sumatriptan (RESPIRATORY DISTRESS 03/26/17) Family History: Family history: Postive for: CAD, DM. Negative for: cancer. Social History: Smoking Hx Tobacco: No Smoker: Never Smoker Type: N/A Packs/day: N/A Are you exposed to second hand No Alcohol: Alcohol: No Hx of Drug Use: Drug Use? No Patien't marital status is: Review of Systems: ENT No: ear ache, mouth pain, sinus problems, sore throat. Cardiovascular Positive for: chest pain, edema. No: palpitations. Respiratory Positive for: shortness of air. No: hemoptysis, non-productive, pneumonia, productive cough (sputum). GI Positive for: GERD. No: abdominal pain, constipation, diarrhea, hematemeis, hematochezia, melena, nausea, vomitting. (female) No: frequency, hematuria. Neurological Positive for: syncope. No: confusion, dizziness, headache, seizure. Musculoskeletal Positive for: thoracic pain. Physical Exam: Vital signs: Vital Signs Date Time Temp Pulse Resp B/P Pulse O2 O2 Flow FiO2 Ox Delivery Rate 03/27 0816 98.0 66 20 109/67 98 03/27 0755 98.0 66 20 109/67 98 ROOM AIR 03/27 0336 97.5 66 17 121/83 97 ROOM AIR 03/26 2334 97.9 71 18 105/65 98 ROOM AIR 03/26 2325 71 03/26 2325 97.9 71 18 105/65 03/26 232 98 ROOM AIR 03/26 2303 73 18 125/87 96 03/26 2242 73 18 125/87 96 03/26 2128 80 18 93/69 94 03/26 2117 90 18 93/69 94 03/26 2116 89 82/52 03/26 2115 89 103/59 03/26 2047 98.3 95 18 88/53 94 03/26 2046 95 88/53 03/26 2046 90 95/59 03/26 2044 101 103/58 03/26 2002 98.3 60 18 98/63 94 03/26 185 98.3 86 18 138/65 96 1ST Vital Signs Result Date Time Pulse Ox 96 03/26 185 B/P 138/65 03/26 1858 Temp 98.3 03/26 1858 Pulse 86 03/26 185 Resp 18 03/26 1858 O2 Delivery ROOM AIR 03/26 2325 Exam: General appearance: alert, active, no acute distress Eyes: anicteric, conjunctiva clear, pupils reactive to light ENT: mucous membranes moist, pharynx normal Neck: no carotid bruit, full range of motion, lymphadenopathy (absent), thyroid (normal) Cardiovascular: regular rate & rhythm Respiratory: clear to auscultation (bilat anterior and posterior) ABD: non-distended, soft, no tenderness, no guarding, bowel sounds present Extremities: no peripheral edema, no calf tenderness Neuro: alert, oriented, speech clear Lab data: Labs: Laboratory Tests 03/27/17 0405: Sodium 144, Potassium 3.3 L, Chloride 107, Carbon Dioxide 29, BUN 15, Creatinine 0.9, Estimated Creat Clear 138, Estimated GFR (MDRD) 65, Glucose 131 H, Calcium 8.2 L, Total Bilirubin 0.3, AST 77 H, ALT 90 H, Alkaline Phosphatase 85, Creatine Kinase 227 H, CK-MB (CK-2) Rel Index 0.8, CK and CKMB Interp 1.9, Troponin I 0.20 H, Total Protein 7.1, Albumin 3.4, Globulin 3.7 H, Albumin/Globulin Ratio 0.9 L, WBC 6.9, RBC 3.87 L, Hgb 11.7 L, Hct 36.2 L, MCV 93.6, RDW 14.5, Plt Count 198, MPV 7.2 L, Gran % 37.0, Gran # 2.6, Total Counted 100, Lymphocytes % 51.5 H, Monocytes % 7.4, Eosinophils % 3.5, Basophils % 0.5, Neutrophils 32 L, Band Neutrophils 1, Lymphocytes (Manual) 62 H, Lymphocytes # 3.6, Monocytes (Manual) 2, Monocytes # 0.5, Eosinophils # 0.3, Eosinophils # (Manual) 3, Basophils # 0.0, RBC/WBC/PLT Morphology NORMAL, Platelet Estimate NORMAL, PUBS MCHC 32.2, MCH 30.2 03/26/172150: Creatine Kinase 196 H, CK-MB (CK-2) Rel Index 0.6, CK and CKMB Interp 1.1, Troponin I 0.11 H 03/26/172109: POC Glucose 73 03/26/171909: TSH 3.38, Free T4 Index 8.1, Thyroxine (T4) 10.8, T3 Uptake 30 L 03/26/171909: Sodium 142, Potassium 2.8 *L, Chloride 102, Carbon Dioxide 30, BUN 18, Creatinine 1.1 H, Estimated Creat Clear 113, Estimated GFR (MDRD) 52 L, Glucose 89, Calcium 9.1, Total Bilirubin 0.4, AST 98 H, ALT 107 H, Alkaline Phosphatase 98, Creatine Kinase 223 H, CK-MB (CK-2) Rel Index 0.6, CK and CKMB Interp 1.3, Troponin I 0.03, Total Protein 8.2, Albumin 4.0, Globulin 4.2 H, Albumin/Globulin Ratio 1.0 L, D-Dimer 386, WBC 8.1, RBC 4.05 L, Hgb 12.2, Hct 37.5, MCV 92.5, RDW 14.5, Plt Count 231, MPV 7.8, Gran % 49.0, Gran # 4.0, Lymphocytes % 41.9, Monocytes % 5.9, Eosinophils % 2.9, Basophils % 0.4, Lymphocytes # 3.4, Monocytes # 0.5, Eosinophils # 0.2, Basophils # 0.0, PUBS MCHC 32.5, MCH 30.0 Radiology results: Results: CXR 03/26/17 IMPRESSION: Lungs clear. Stable nothing definitely acute 03/26/17 CT of head IMPRESSION: No acute intracranial findings.. Stable CT brain versus 2008 mild mucosal thickening sphenoid sinus incidentally noted Diagnosis(es): 1. Syncope 2. Diabetes with metabolic disorder 3. Elevated troponin 4. CAD (coronary artery disease) 5. Depression 6. Anxiety 7. Elevated LFTs Plan: cardiology consult; will start on some of home meds (Ashley Vega APRN) Diagnosis(es): 1. Syncope 2. Diabetes with metabolic disorder 3. Elevated troponin 4. CAD (coronary artery disease) 5. Depression 6. Anxiety 7. Elevated LFTs (Danielle Julio MD) at 1544 at 1707
--- NOTE | 2017-03-27 13:52 | RADIOLOGY REPORT PS360 ---
CARDIAC CATHETERIZATION DATE OF CATHETERIZATION:03/27/2017 12:51 PM PROCEDURES: 1. Left heart catheterization 2. Left ventriculogram 3. Selective coronary angiogram INDICATION FOR TEST: 1. Syncope 2. Angina pectoris class IV/unstable angina Informed consent was obtained prior to the procedure. COMPLICATIONS: None ESTIMATED BLOOD LOSS: Less than 10 ml. TECHNIQUE: One percent lidocaine used to anesthetize the right anterior aspect of the wrist. The right radial artery was accessed via the Seldinger technique. A 6 Vietnamese sheath was placed in the right radial artery. 2.5 mg of verapamil, 800 mcg of nitroglycerin and 5000 U Heparin were given through the arterial sheath. The trap catheter was also used to perform left heart catheterization and left ventriculography. At the end of the procedure the patient was transferred to the post-op holding area in stable condition for arterial sheath removal. ANGIOGRAPHIC RESULTS: 1. The left main artery normal 2. The left anterior descending artery proximally has 10% stenosis with a mid vessel 20-30% stenosis 3. The circumflex artery is nondominant with mild luminal irregularities 4. The right coronary artery is dominant with mild 10% diffuse luminal irregularities 5. The ANNE ventriculogram reveals normal 55-60% 6. The left ventricular end-diastolic pressure is severely elevated at 35 to 40 mmHg IMPRESSION: 1. Mild nonflow limiting coronary artery disease . 2. Normal ejection fraction 3. Severely elevated LVEDP consistent with diastolic dysfunction PLAN: 1. Medical management for coronary artery disease 2. Aggressive risk factor modification for ischemic heart disease 3. Patient needs diuresis including Lasix and spironolactone in order to decrease LVEDP 4. Assess for obstructive sleep apnea
--- NOTE | 2017-03-27 20:09 | RADIOLOGY REPORT PS360 ---
PROCEDURE: 2-D M-mode and color Doppler study INDICATIONS FOR THE TEST: Chest pain X COPD Heart Murmur Tobacco SmokingX Palpitations Fatigue Syncope Edema Hypertension Diabetes MellitusX Rheumatic Fever SOB AMARO Obesity Hyperlipidemia Family History HD Additional History BEVERLY PATIENT INFORMATION HEIGHT: 67 WEIGHT:270 GENDER: Female B/P:150/70 2-D/M-MODE INTERPRETATION: 2-D MEASUREMENTS OBSERVED VALUES IN CMS Right Ventricular Dimension (RVDd) 3.1 Interventricular Septum (Thickness)(IVsd) 1.4 Left Ventricular Internal Dimensions(LVIDd) 5.5 Left Ventricular Posterior Wall (Thickness)(LVPWd) 1.2 Aortic Root 3.3 Aortic Cusp Separation 1.9 Left Atrial Dimensions (LAD) 4.6 2D 1. Left atrium is mildly enlarged, as well as normal size, there is mild concentric left ventricular hypertrophy, visually estimated ejection fraction 55% with no obvious regional wall motion abnormality. Endocardial surfaces are somewhat poorly visualized. 2. The right atrium and right ventricle are mildly enlarged, contractility of the right ventricle is normal. 3. The aortic valve is minimally thickened and fibrosed. 4. The mitral and tricuspid valve leaflets are minimally thickened. 5. The pulmonic valve is poorly visualized 6. No significant pericardial effusion noted. DOPPLER INTERROGATION: Doppler interrogation of the aortic, mitral and tricuspid valvular presence of mild mitral and tricuspid regurgitation, tricuspid regurgitant jet velocity is insufficient for calculation of the right ventricular systolic pressure, diastolic parameters are inconclusive. CONCLUSION: 1. Mild biatrial enlargement, normal left ventricular size, mild concentric left ventricular hypertrophy, visually estimated ejection fraction 55% with no obvious regional wall motion abnormality, diastolic parameters are inconclusive. 2. Mildly enlarged right ventricle with normal contractility. 3. Mild mitral and tricuspid regurgitation 4. No significant pericardial effusion noted.
[2017-03-28 03:48] VITALS: BP 128/74
[2017-03-28 07:40] VITALS: BP 123/82
[2017-03-28] MEDS ORDERED: ALDACTONE 25MG25 MG PO (08:49)
--- NOTE | 2017-03-28 08:59 | ACUTE CARE PROGRESS NOTE (QUA) ---
Progress Notes Subjective Date 03/28/17 Time 0855 Note Is stable and ready for discharge. Prolactin 50 mg by mouth twice a day has been added to her medication regimen. She will be following up with her primary care doctor Dr. Trevor Schneider. Objective Findings Laboratory Tests 03/28/17 0623: POC Glucose 131 H 03/27/17 2053: POC Glucose 125 H 03/27/17 1708: POC Glucose 241 H 03/27/17 1010: Creatine Kinase 216 H, CK-MB (CK-2) Rel Index 0.7, CK and CKMB Interp 1.5, Troponin I 0.17 H Last VS-Temp:97.8 B/P:123/82 Pulse:68 Resp:20 SaO2:99 ROOM AIR Last weight lbs:270 oz:2 K.528 Method:Bed Scales Exam General appearance: alert, no acute distress Eyes: anicteric, conjunctiva clear ENT: mucous membranes moist Cardiovascular: normal sinus rhythm, regular rate & rhythm Respiratory: clear to auscultation ABD: soft, no tenderness Extremities: no peripheral edema Musculoskeletal: equal muscle strength Skin: dry, intact, normal color Neuro: alert, oriented, speech clear Reviewed: medications, vital signs, lab results, consult note Assessment/Plan Problem List 1. Syncope 2. Diabetes with metabolic disorder 3. Elevated troponin 4. CAD (coronary artery disease) 5. Depression 6. Anxiety 7. Elevated LFTs Patient condition Stable Plan: make medication changes, initiate discharge plan This inpt stay is expected to cross 2 MNs from start of care Yes at 0859
[2017-03-28 09:00] VITALS: BP 123/82
[2017-03-28 10:32] VITALS: BP 128/82
== END 2017-03-28 11:40 | disposition home or self-care (01) ==
LOC: ER 18:58 → 2ND 21:34 → ER 21:34 → 2ND 22:49
PROVIDERS: Emergency Medicine; General Practice; Internal Medicine
PROC: B2111ZZ Fluoroscopy of Multiple Coronary Arteries using Low Osmolar Contrast (ICD-10-PCS; 2017-03-27)
PROC: B2151ZZ Fluoroscopy of Left Heart using Low Osmolar Contrast (ICD-10-PCS; 2017-03-27)
PROC: 4A023N7 Measurement of Cardiac Sampling and Pressure, Left Heart, Percutaneous Approach (ICD-10-PCS; principal; 2017-03-27 13:30)
DX: I21.4 Non-ST elevation (NSTEMI) myocardial infarction (principal); I25.110 Atherosclerotic heart disease of native coronary artery with unstable angina pectoris; R55 Syncope and collapse; E11.9 Type 2 diabetes mellitus without complications; I10 Essential (primary) hypertension; I50.30 Unspecified diastolic (congestive) heart failure; E87.6 Hypokalemia
CPT/HCPCS: C1725; C1769; J1644; Q9967